=== PATIENT | female | born 1975 ===

== ENCOUNTER → 2024-06-16 17:25 | Outpatient (CLI) | payer OTHER, SELFPAY ==
--- NOTE | 2024-06-16 17:26 | DI.RAD.S_ITS ---
PROCEDURE: XR KNEE LT 3V INDICATIONS: fall onto gravel/swelling, pain w/ flexion/puncture TECHNIQUE: 3 views of the knee were acquired. COMPARISON: None. FINDINGS: Bones: No fractures or dislocations. No patellar subluxation. No suspicious bony lesions. Soft tissues: Moderate suprapatella joint effusion. No suspicious soft tissue calcifications. IMPRESSION: Moderate suprapatellar joint effusion. No acute left knee fracture or dislocation. Dictated by: Xavier Arreola M.D. on 06/16/2024 at 18:10 Approved by: Xavier Arreola M.D. on 06/16/2024 at 18:10
== END ==
PROVIDERS: Referring Provider Student in an Organized Health Care Education/Training Program; Visit Provider Student in an Organized Health Care Education/Training Program
DX: S86.919A Strain of unspecified muscle(s) and tendon(s) at lower leg level, unspecified leg, initial encounter (principal); S81.03 Puncture wound without foreign body of knee; M25.462 Effusion, left knee; W19.XXXA Unspecified fall, initial encounter
CPT/HCPCS: 73562